=== PATIENT | female | born 1975 | race African-American/Black ===

== ENCOUNTER 2017-06-04 01:39 | Emergency (ER) | payer OTHER ==
[~2017-06-04] VITALS: Ht 167.6 cm; Wt 142.0 kg
[~2017-06-04 01:39] MED LIST: ACCUNEB SO1.25 MG/1 INH; ALPRAZOLAM; ALPRAZOLAM 0.50.5 M1; BIRTH CONTROL; CLEOCIN HCL150 MG PO; CYCLOBENZAPRINE5 MG PO; DOXYCYCLINE 10100 MG PO; FLEXERIL PO; HYDROCHLOROTH12.5 MG PO; IBUPROFEN 800800 M1 PO; IBUPROFEN 800800 MG PO; KEFLEX500 MG PO; LOESTRIN 24 FE1 EACH PO; MELOXICAM7.5 MG PO; NAPROSYN500 MG PO; NORCO 5-325 TA1 EACH PO; PREDNISONE 20 M20 MG PO; TESSALON PERLE100 MG PO; TUSSIONEX PENN115 ML PO; TUSSIONEX PENN473 ML PO; VENTOLIN HFA 1818 GM INH; XANAX 0.25 MG0.25 MG PO; XANAX 0.5 MG0.5 M1 PO; ZPAK PO
[2017-06-04 02:16] LABS: HEMATOCRIT 40.3 % (37.0-47.0); HEMOGLOBIN 13.2 gm/dL (12.0-15.0); MCHC 32.6 g/dL (28.0-37.0); MCV 79.8 fL (80.0-100.0); RBC 5.06 mil/uL (4.20-5.00); RDW 15.3 % (10.5-14.5); WBC 7.7 thou/uL (4.0-11.0)
[2017-06-04 02:26] LABS: CALCIUM 9.3 mg/dL (8.5-10.1); CREATININE 0.9 mg/dL (0.6-1.0); POTASSIUM 3.4 mmol/L (3.5-5.1)
[2017-06-04 04:08] LABS: URINE BLOOD NEGATIVE (Negative); URINE CLARITY SL CLOUDY; URINE COLOR YELLOW; URINE GLUCOSE-RANDOM* NEGATIVE (Negative); URINE KETONES 2+ (Negative); URINE LEUKOCYTES-REFLEX NEGATIVE (Negative); URINE NITRITE-REFLEX NEGATIVE (Negative); URINE PROTEIN (DIPSTICK) TRACE (Negative); URINE SPECIFIC GRAVITY >= 1.030 (1.005-1.035); URINE UROBILINOGEN 0.2 E.U./dl (0.2-1.0)
[2017-06-04 04:10] LABS: ICTOTEST (BILI CONFIRMATORY) Negative (Negative); URINE BILIRUBIN NEGATIVE (Negative)
[2017-06-04 04:51] VITALS: BP 136/78
[2017-12-06] MEDS ORDERED: NEURONTIN 300300 M1 PO (05:08)
[2017-12-06] MEDS ORDERED: ALEVE220 M1 PO (07:13)
[2017-12-07] MEDS ORDERED: FLEXERIL PO ×2 (00:16→07:27)
[2017-12-10] MEDS ORDERED: PRADAXA150 MG PO (13:16)
[2017-12-10] MEDS ORDERED: TYLENOL325 MG PO (13:16)
[2017-12-10] MEDS ORDERED: LEVAQUIN 750 M750 MG PO (13:35)
[2017-12-10] MEDS ORDERED: WORK EXCUSE (15:59)
== END 2017-06-04 04:52 | disposition home or self-care (01) ==
LOC: ER 01:39
PROVIDERS: Emergency Medicine
DX: O26.891 Other specified pregnancy related conditions, first trimester (principal); R10.2 Pelvic and perineal pain; O99.331 Smoking (tobacco) complicating pregnancy, first trimester; O99.341 Other mental disorders complicating pregnancy, first trimester; O16.1 Unspecified maternal hypertension, first trimester; Z3A.01 Less than 8 weeks gestation of pregnancy; Z88.0 Allergy status to penicillin

== ENCOUNTER 2018-06-15 12:28 | Emergency (ER) | payer OTHER ==
[~2018-06-15] VITALS: Ht 167.6 cm; Wt 138.8 kg
[~2018-06-15 12:28] MED LIST changes: +ALEVE220 M1 PO; +LEVAQUIN 750 M750 MG PO; +NEURONTIN 300300 M1 PO; +PRADAXA150 MG PO; +TYLENOL325 MG PO; +WORK EXCUSE
[2018-06-15 12:50] LABS: ABSOLUTE NEUTROPHILS 3.4 thou/uL (1.4-8.2); BASOPHILS 0.9 % (0.0-2.0); EOSINOPHILS 1.7 % (0.0-3.0); HEMATOCRIT 39.5 % (37.0-47.0); HEMOGLOBIN 13.1 gm/dL (12.0-15.0); LYMPHOCYTES 40.2 % (24.0-44.0); MCH 26.7 pg (26.0-34.0); MCHC 33.1 g/dL (28.0-37.0); MCV 80.7 fL (80.0-100.0); MONOCYTES 8.5 % (1.0-8.0); PLATELET COUNT 280 thou/uL (150-400); POLYS 48.7 % (36.0-66.0); RBC 4.89 mil/uL (4.20-5.00)
[2018-06-15 13:01] LABS: CALCIUM 8.7 mg/dL (8.5-10.1); CREATININE 0.8 mg/dL (0.6-1.0); POTASSIUM 4.3 mmol/L (3.5-5.1)
[2018-06-15 13:07] LABS: ALBUMIN 3.5 g/dL (3.4-5.0); TOTAL BILIRUBIN 0.4 mg/dL (<0.1-1.0); TOTAL PROTEIN 7.8 g/dL (6.4-8.2)
[2018-06-15] MEDS ORDERED: IBUPROFEN 400400 M2 PO (16:22)
[2018-06-15 16:30] VITALS: BP 114/72
--- NOTE | 2018-06-15 17:28 | EKG ---
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1975 Requested By: Luiz Heath Order Number: [id number] MD: Phil Lyn Measurements Intervals [place] [address] Rate: 97 P: 54 SD: 142 QRS: 3 QRSD: 85 T: 28 QT: 343 QTc: 436 Interpretive Statements Sinus rhythm Normal tracing Compared to ECG 12/29/2017 02:05:23 No significant changes Electronically Signed On 06-15-2018 17:27:57 CDT by Phil Lyn [email or web address] ��������������������������������������������� <ELECTRONICALLY SIGNED> ���������������������������������������� By: Phil Lyn MD, [facility] ��������������������������������������������� 06/15/18 1727 1239 1239 Phil Lyn MD, FACC /EPI
== END 2018-06-15 16:35 | disposition home or self-care (01) ==
LOC: ER 12:28
PROVIDERS: Physician Assistant
DX: R07.89 Other chest pain (principal); I10 Essential (primary) hypertension; F41.9 Anxiety disorder, unspecified; M79.7 Fibromyalgia; Z87.891 Personal history of nicotine dependence; Z88.0 Allergy status to penicillin; Z88.8 Allergy status to other drugs, medicaments and biological substances; Z98.890 Other specified postprocedural states; Z86.711 Personal history of pulmonary embolism

== ENCOUNTER 2019-04-03 07:14 | Emergency (ER) | payer OTHER ==
[~2019-04-03] VITALS: Ht 167.6 cm; Wt 145.2 kg
[~2019-04-03 07:14] MED LIST changes: +IBUPROFEN 400400 M2 PO
[2019-04-03 08:36] LABS: BASOPHILS 0.6 % (0.0-2.0); EOSINOPHILS 3.1 % (0.0-3.0); HEMATOCRIT 40.5 % (37.0-47.0); HEMOGLOBIN 13.1 gm/dL (12.0-15.0); LYMPHOCYTES 44.1 % (24.0-44.0); MCH 26.9 pg (26.0-34.0); MCHC 32.3 g/dL (28.0-37.0); MONOCYTES 6.5 % (1.0-8.0); PLATELET COUNT 298 thou/uL (150-400); POLYS 45.7 % (36.0-66.0); RBC 4.87 mil/uL (4.20-5.00); RDW 15.5 % (10.5-14.5); WBC 4.4 thou/uL (4.0-11.0)
[2019-04-03 08:43] LABS: CREATININE 0.8 mg/dL (0.6-1.0); POTASSIUM 4.2 mmol/L (3.5-5.1)
[2019-04-03] MEDS ORDERED: MOBIC15 MG PO (09:12)
[2019-04-03] MEDS ORDERED: NORCO 5-325 TA1 EAC1 PO (09:12)
[2019-04-03 09:22] VITALS: BP 132/78
== END 2019-04-03 09:23 | disposition home or self-care (01) ==
LOC: ER 07:14
PROVIDERS: Emergency Medicine
DX: S86.811A Strain of other muscle(s) and tendon(s) at lower leg level, right leg, initial encounter (principal); R07.89 Other chest pain; I10 Essential (primary) hypertension; M79.7 Fibromyalgia; F41.9 Anxiety disorder, unspecified; Z86.711 Personal history of pulmonary embolism; Z98.890 Other specified postprocedural states; Z88.0 Allergy status to penicillin; Z88.9 Allergy status to unspecified drugs, medicaments and biological substances; Z87.891 Personal history of nicotine dependence; W18.39XA Other fall on same level, initial encounter; Y92.89 Other specified places as the place of occurrence of the external cause; Y93.89 Activity, other specified; Y99.8 Other external cause status

== ENCOUNTER 2019-08-31 16:36 | Emergency (ER) | payer OTHER ==
[~2019-08-31] VITALS: Ht 167.6 cm; Wt 147.0 kg
[~2019-08-31 16:36] MED LIST changes: +MOBIC15 MG PO; +NORCO 5-325 TA1 EAC1 PO
[2019-08-31 17:33] LABS: ABSOLUTE NEUTROPHILS 2.6 thou/uL (1.4-8.2); BASOPHILS 0.4 % (0.0-2.0); EOSINOPHILS 1.6 % (0.0-3.0); HEMATOCRIT 42.3 % (37.0-47.0); LYMPHOCYTES 44.2 % (24.0-44.0); MCH 27.3 pg (26.0-34.0); MCV 82.8 fL (80.0-100.0); PLATELET COUNT 285 thou/uL (150-400); POLYS 45.8 % (36.0-66.0); RBC 5.11 mil/uL (4.20-5.00); RDW 15.4 % (10.5-14.5); WBC 5.6 thou/uL (4.0-11.0)
[2019-08-31 17:41] LABS: ANION GAP 12 mmol/L (7-16); BUN 14 mg/dL (7-18); CALCIUM 9.1 mg/dL (8.5-10.1); CHLORIDE 100 mmol/L (98-107); CO2 21 mmol/L (21-32); CREATININE 0.9 mg/dL (0.6-1.0); GLUCOSE 86 mg/dL (74-106); POTASSIUM 3.5 mmol/L (3.5-5.1); SODIUM 133 mmol/L (136-145)
[2019-08-31 17:50] LABS: MAGNESIUM 1.8 mg/dL (1.8-2.4); TROPONIN-I <0.06 ng/mL (<0.06)
[2019-08-31] MEDS ORDERED: FLEXERIL PO (17:57)
[2019-08-31 19:05] LABS: URINE BILIRUBIN NEGATIVE (Negative); URINE BLOOD TRACE (Negative); URINE CLARITY CLEAR; URINE COLOR YELLOW; URINE GLUCOSE-RANDOM* NEGATIVE (Negative); URINE KETONES 1+ (Negative); URINE LEUKOCYTES-REFLEX NEGATIVE (Negative); URINE NITRITE-REFLEX NEGATIVE (Negative); URINE PROTEIN (DIPSTICK) NEGATIVE (Negative); URINE UROBILINOGEN 0.2 E.U./dl (0.2-1.0)
[2019-08-31] MEDS ORDERED: VALIUM5 MG PO (19:24)
[2019-08-31] MEDS ORDERED: MEDROLDOSEPACK PO (19:24)
[2019-08-31 20:04] VITALS: BP 119/89
--- NOTE | 2019-09-01 08:53 | EKG ---
[facility] [place] [address] ELECTROCARDIOGRAM REPORT Name: JOHN STARKS Room #: [facility]P [facility]#: [id number] Admission: 08/31/19 Attend Phys: Discharge: 08/31/19 Date of : 79 Report #: [id number] THIS REPORT FOR: cc: Diamond Cervantes MD, Karla L. 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 : 1975 Requested By: Luis Edwards Order Number: [id number] MD: Phil Lyn Measurements Intervals [place] Rate: 106 P: 22 HI: 137 QRS: 15 QRSD: 82 T: 21 QT: 335 QTc: 445 Interpretive Statements Sinus tachycardia Poor R wave progression Compared to ECG 06/15/2018 12:39:20 No significant change was found Electronically Signed On 09-01-2019 8:51:46 CDT by Phil Lyn [email or web address] <ELECTRONICALLY SIGNED> By: Phil Lyn MD, FAC 09/01/19 0851 1643 1643 Phil Lyn MD, [facility] /EPI
== END 2019-08-31 20:05 | disposition home or self-care (01) ==
LOC: ER 16:36
PROVIDERS: Emergency Medicine
DX: M54.6 Pain in thoracic spine (principal); R07.89 Other chest pain; R00.0 Tachycardia, unspecified; R20.2 Paresthesia of skin; I10 Essential (primary) hypertension; M79.7 Fibromyalgia; Z87.891 Personal history of nicotine dependence; Z88.0 Allergy status to penicillin; Z88.8 Allergy status to other drugs, medicaments and biological substances; Z88.6 Allergy status to analgesic agent; Z79.899 Other long term (current) drug therapy; Z98.890 Other specified postprocedural states; Z86.711 Personal history of pulmonary embolism

== ENCOUNTER 2020-03-21 11:57 | Emergency (ER) | payer OTHER ==
[~2020-03-21] VITALS: Ht 167.6 cm; Wt 154.2 kg
[~2020-03-21 11:57] MED LIST changes: +MEDROLDOSEPACK PO; +VALIUM5 MG PO
[2020-03-21 12:09] VITALS: BP 150/91
[2020-03-21] MEDS ORDERED: CLOTRIMAZOLE 1%15 G1 TOP (13:10)
== END 2020-03-21 13:15 | disposition home or self-care (01) ==
LOC: ER 11:57
DX: B35.9 Dermatophytosis, unspecified (principal); L73.9 Follicular disorder, unspecified; I10 Essential (primary) hypertension; Z79.899 Other long term (current) drug therapy; Z87.891 Personal history of nicotine dependence; Z88.0 Allergy status to penicillin; Z88.8 Allergy status to other drugs, medicaments and biological substances

== ENCOUNTER 2020-05-08 12:37 | Observation (INO) | payer OTHER ==
[~2020-05-08] VITALS: Ht 167.6 cm; Wt 144.2 kg
[~2020-05-08 12:37] MED LIST changes: +CLOTRIMAZOLE 1%15 G1 TOP
[2020-05-08 12:44] VITALS: BP 154/112
[2020-05-08 14:09] LABS: ABSOLUTE NEUTROPHILS 5.7 thou/uL (1.4-8.2); BASOPHILS 0.8 % (0.0-2.0); EOSINOPHILS 0.6 % (0.0-3.0); HEMATOCRIT 41.6 % (37.0-47.0); HEMOGLOBIN 13.7 gm/dL (12.0-15.0); LYMPHOCYTES 27.7 % (24.0-44.0); MCH 26.8 pg (26.0-34.0); MCHC 32.9 g/dL (28.0-37.0); MCV 81.3 fL (80.0-100.0); PLATELET COUNT 349 thou/uL (150-400); POLYS 62.9 % (36.0-66.0); RBC 5.12 mil/uL (4.20-5.00); RDW 15.5 % (10.5-14.5)
[2020-05-08 14:21] LABS: ANION GAP 9 mmol/L (7-16); BUN 14 mg/dL (7-18); CALCIUM 9.5 mg/dL (8.5-10.1); CHLORIDE 99 mmol/L (98-107); CO2 30 mmol/L (21-32); CREATININE 1.2 mg/dL (0.6-1.0); GLUCOSE 82 mg/dL (74-106); POTASSIUM 3.4 mmol/L (3.5-5.1); SODIUM 138 mmol/L (136-145)
[2020-05-08 14:29] LABS: TROPONIN-I <0.06 ng/mL (<0.06)
--- NOTE | 2020-05-08 15:40 | EKG ---
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 : 1975 Requested By: Allison Ellis Order Number: [id number] MD: Malachi Feliz Measurements Intervals [place] Rate: 84 P: 48 [place]: 150 QRS: 7 QRSD: 90 T: 27 QT: 370 QTc: 438 Interpretive Statements Sinus rhythm LVH by voltage Compared to ECG 08/31/2019 16:43:04 Left ventricular hypertrophy now present Sinus tachycardia no longer present Poor R-wave progression no longer present Electronically Signed On 05-08-2020 15:40:23 WARPMAN by Malachi Feliz [email or web address] <ELECTRONICALLY SIGNED> By: Malachi Feliz MD 05/08/20 1540 1439 1439 Malachi Feliz MD /NANCY
[2020-05-08 16:18] VITALS: BP 154/112
[2020-05-08 17:04] VITALS: BP 138/100
[2020-05-08 17:30] VITALS: BP 147/98
[2020-05-08 17:45] VITALS: BP 147/98
--- NOTE | 2020-05-08 19:19 | NUR ---
PT CARE ASSUMED AT 0700. ASSESSMENTS CHARTED. MEDICATIONS CHARTED. HIWOT IV. SINUS RHYTHM. PT COMPLAINS OF MID BACK AND CHEST PAIN. TOILET. UP AD RAE. PT BELIEVES HER ISSUE TO BE PE, STATES THAT SHE HAS HAD IT BEFORE.
[2020-05-08 20:02] VITALS: BP 144/84
[2020-05-09 00:36] VITALS: BP 122/88
[2020-05-09 04:28] VITALS: BP 131/81
--- NOTE | 2020-05-09 05:01 | NUR ---
ASSUMED PATIENT CARE AT 1845. VITAL SIGNS STABLE. PATIENT HAD MANY COMPLAINTS OF PAIN AND NAUSEA OVER SHIFT WHICH WERE TREATED APPROPRIATELY THROUGH MEDICATIONS AND NON PHARMACOLOGICAL INTERVENTIONS. FULLY ALERT AND ORIENTED, PATIENT IS ABLE TO CALL APPROPRIATELY FOR NEEDS AND PARTICIPATE IN CARE. UP AD RAE THROUGHOUT, PATIENT APPEARS STRONG AND BALANCED WHEN AMBULATING. CONTINUE PLAN OF CARE.
[2020-05-09 06:35] LABS: CALCIUM 8.9 mg/dL (8.5-10.1); MAGNESIUM 2.1 mg/dL (1.8-2.4); POTASSIUM 3.7 mmol/L (3.5-5.1)
[2020-05-09 06:44] LABS: CHOLESTEROL 204 mg/dL (<200); HDL CHOLESTEROL 55 mg/dL (>40); LDL CHOLESTEROL 130 mg/dL (<100); TC:HDL 3.7 Ratio (Not establshd); TRIGLYCERIDE 96 mg/dL (<150); TROPONIN-I <0.06 ng/mL (<0.06); VLDL 19 mg/dL (<40)
--- NOTE | 2020-05-09 07:26 | EKG ---
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 : 1975 Requested By: Allison Ellis Order Number: [id number] : Philip Hinkle Measurements Intervals [place] Rate: 132 P: 51 PA: 136 QRS: 19 QRSD: 84 T: 57 QT: 304 QTc: 451 Interpretive Statements Sinus tachycardia Abnormal R-wave progression, late transition Baseline wander in lead(s) II,aVR Compared to ECG 08/31/2019 16:43:04 Poor R-wave progression no longer present Electronically Signed On 05-09-2020 7:26:02 BAIT TIER by Philip Hinkle [email or web address] <ELECTRONICALLY SIGNED> By: Philip Hinkle MD, [facility] 05/09/20 0726 1243 1243 Philip Hinkle MD, [facility] /EPI
[2020-05-09 08:00] VITALS: BP 120/58
[2020-05-09 09:26] LABS: BASOPHILS 0.5 % (0.0-2.0); EOSINOPHILS 1.2 % (0.0-3.0); HEMOGLOBIN 13.2 gm/dL (12.0-15.0); LYMPHOCYTES 35.4 % (24.0-44.0); MCH 26.6 pg (26.0-34.0); MCHC 32.1 g/dL (28.0-37.0); MCV 82.8 fL (80.0-100.0); MONOCYTES 10.1 % (1.0-8.0); PLATELET COUNT 331 thou/uL (150-400); POLYS 52.8 % (36.0-66.0); RBC 4.95 mil/uL (4.20-5.00); RDW 15.6 % (10.5-14.5); WBC 5.6 thou/uL (4.0-11.0)
--- NOTE | 2020-05-09 09:58 | 2DMMODE ---
[facility] [place] [address] 2 D/M-MODE ECHOCARDIOGRAM Name: JOHN STARKS Room #: 214-P ADM IN M.R.#: [id number] Admission: 05/08/20 Attend Phys: Austyn Patel MD Discharge: Date of : 79 Report #: [id number] THIS REPORT FOR: cc: Diamond Cervantes MD, Karla L. MD Lammoglia, Francisco J. MD ~ APPROVED REPORT Study performed: 05/09/2020 08:01:06 EXAM: Comprehensive 2D, Doppler, and color-flow Echocardiogram Patient Location: Bedside Room #: 214 Status: routine BSA: 2.41 HR: 73 bpm BP: 131/81 mmHg Other Information Study Quality: Adequate Technically limited study due to morbid obesity. Indications Chest Pain Hx: HTN, Pulmonary embolism, tobacco abuse. 2D Dimensions RVDd: 33.21 mm IVSd: 10.37 (7-11mm) LVOT Diam: 19.37 (18-24mm) LVDd: 54.07 mm PWd: 8.52 (7-11mm) Ascending Ao: 26.01 (22-36mm) LVDs: 31.93 (25-40mm) Aortic Root: 24.42 mm Volumes Left Atrial Volume (Systole) Single Plane 4CH: 39.49 mL Single Plane 2CH: 66.30 mL LA ESV Index: 23.00 mL/m2 Aortic Valve AoV Peak Zenon.: 1.63 m/s AO Peak Gr.: 10.61 mmHg LVOT Max P.20 mmHg LVOT Max V: 1.02 m/s MARYAM Vmax: 1.85 cm2 [facility] [address] [place] [address] 2 D/M-MODE ECHOCARDIOGRAM Name: JOHN STARKS Patria Room #: 214-P [facility]#: [id number] Admission: 05/08/20 Attend Phys: Austyn Patel MD Discharge: Date of : 79 Report #: [id number] Mitral Valve E/A Ratio: 1.2 MV Decel. Time: 235.54 ms MV E Max Zenon.: 0.85 m/s MV A Zenon.: 0.69 m/s MV PHT: 68.31 ms IVRT: 83.04 ms Pulmonary Valve PV Peak Zenon.: 1.03 m/s PV Peak Gr.: 4.24 mmHg Pulmonary Vein P Vein S: 0.51 m/s P Vein A: 0.36 m/s P Vein D: 0.30 m/s P Vein A Dur.: 141.9 msec P Vein S/D Ratio: 1.70 Tricuspid Valve TR Peak Zenno.: 2.31 m/s RAP Estimate: 5.00 mmHg TR Peak Gr.: 21.42 mmHg PA Pressure: 26.00 mmHg Left Ventricle The left ventricle is normal size. There is normal LV segmental wall motion. There is normal left ventricular wall thickness. Left ventricular systolic function is normal. LVEF is 55-60%. The left ventricular diastolic function is normal. Right Ventricle The right ventricle is normal size. The right ventricular systolic function is normal. Atria The left atrium size is normal. The right atrium size is normal. Aortic Valve The aortic valve is normal in structure. No aortic regurgitation is present. There is no aortic valvular stenosis. Mitral Valve The mitral valve is normal in structure. There is no mitral valve regurgitation noted. No evidence of mitral valve stenosis. Tricuspid Valve The tricuspid valve is normal in structure. Trace tricuspid [facility] [address] [place] [address] 2 D/M-MODE ECHOCARDIOGRAM Name: JOHN STARKS Room #: 214-P [facility] IN M.R.#: [id number] Admission: 05/08/20 Attend Phys: Austyn Patel MD Discharge: Date of : 79 Report #: [id number] regurgitation. Estimated PAP is 25mmHg. Pulmonic Valve Pulmonic valve is not well visualized. Trace pulmonic regurgitation. Great Vessels The aortic root is normal in size. The ascending aorta is normal in size. IVC is normal in size and collapses >50% with inspiration. Pericardium There is no pericardial effusion. <Conclusion> The left ventricle is normal size. LVEF is 55-60%. The aortic valve is normal in structure. The mitral valve is normal in structure. The tricuspid valve is normal in structure. Trace tricuspid regurgitation. Estimated PAP is 25mmHg. Pulmonic valve is not well visualized. Trace pulmonic regurgitation. There is no pericardial effusion. <ELECTRONICALLY SIGNED> By: Layo Meneses MD 05/09/20 0958 7 Layo Meneses MD /INF
[2020-05-09 11:45] VITALS: BP 106/64
[2020-05-09 15:28] VITALS: BP 106/64
--- NOTE | 2020-05-09 19:51 | NUR ---
ASSUMED CARE OF PT AT SHIFT CHANGE. ASSESSMENTS CHARTED. MEDS GIVEN PER JUN. PT A&OX4, C/O PAIN TREATED WITH IV AND PO MEDS WITH PARTIAL RELIEF. DISCHARGED ORDERS AND INSTRUCTIONS COMPLETE. IV AND TELE DC'D.
[2020-05-09 19:53] VITALS: BP 106/64
== END 2020-05-09 16:46 | disposition home or self-care (01) ==
LOC: ER 12:37 → EROBS 16:08 → 2N 16:08
PROVIDERS: Emergency Medicine; Nurse Practitioner; ADMIT Hospitalist; ATTEND Hospitalist
DX: R07.89 Other chest pain (principal); N17.9 Acute kidney failure, unspecified; I10 Essential (primary) hypertension; F41.9 Anxiety disorder, unspecified; M79.7 Fibromyalgia; F17.210 Nicotine dependence, cigarettes, uncomplicated; Z88.0 Allergy status to penicillin; Z88.1 Allergy status to other antibiotic agents; Z79.899 Other long term (current) drug therapy; Z98.890 Other specified postprocedural states; Z86.711 Personal history of pulmonary embolism
CPT/HCPCS: 10081

== ENCOUNTER 2020-05-17 12:10 | Emergency (ER) | payer OTHER ==
[~2020-05-17] VITALS: Ht 167.6 cm; Wt 163.3 kg
[2020-05-17 12:37] LABS: HEMATOCRIT 44.5 % (37.0-47.0); HEMOGLOBIN 14.4 gm/dL (12.0-15.0); MCH 26.5 pg (26.0-34.0); MCHC 32.5 g/dL (28.0-37.0); MCV 81.5 fL (80.0-100.0); RBC 5.45 mil/uL (4.20-5.00); RDW 15.7 % (10.5-14.5); WBC 6.2 thou/uL (4.0-11.0)
[2020-05-17 12:54] LABS: ANION GAP 10 mmol/L (7-16); BUN 17 mg/dL (7-18); CALCIUM 9.3 mg/dL (8.5-10.1); CHLORIDE 102 mmol/L (98-107); CO2 24 mmol/L (21-32); CREATININE 1.1 mg/dL (0.6-1.0); GLUCOSE 84 mg/dL (74-106); POTASSIUM 3.7 mmol/L (3.5-5.1); SODIUM 136 mmol/L (136-145)
[2020-05-17 12:59] LABS: ALBUMIN 3.6 g/dL (3.4-5.0); SGOT 16 U/L (15-37); SGPT 28 U/L (14-59); TOTAL BILIRUBIN 0.3 mg/dL (0.2-1.0); TROPONIN-I <0.06 ng/mL (<0.06)
[2020-05-17 14:27] VITALS: BP 133/77
--- NOTE | 2020-05-17 15:56 | EKG ---
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 : 1975 Requested By: Trevor Ames Order Number: [id number] MD: Philip Hinkle Measurements Intervals [place] Rate: 111 P: 23 LA: 142 QRS: 16 QRSD: 80 T: 21 QT: 316 QTc: 430 Interpretive Statements Sinus tachycardia Compared to ECG 05/08/2020 14:39:41 Sinus rhythm no longer present Left ventricular hypertrophy no longer present Electronically Signed On 05-17-2020 15:55:57 BACTERIOLOGY PROFESSOR by Philip Hinkle [email or web address] <ELECTRONICALLY SIGNED> By: Philip Hinkle MD, [facility] 05/17/20 1555 1215 1215 Phiilp Hinkle MD, FACC /EPI
== END 2020-05-17 14:27 | disposition home or self-care (01) ==
LOC: ER 12:10
PROVIDERS: Emergency Medicine
DX: R07.89 Other chest pain (principal); I10 Essential (primary) hypertension; M79.7 Fibromyalgia; F17.210 Nicotine dependence, cigarettes, uncomplicated; Z88.0 Allergy status to penicillin; Z88.8 Allergy status to other drugs, medicaments and biological substances; Z79.899 Other long term (current) drug therapy; Z86.711 Personal history of pulmonary embolism; Z98.890 Other specified postprocedural states

== ENCOUNTER → 2020-05-24 | Outpatient (CLI) | payer OTHER | LOC: RAD 14:25 | PROVIDERS: ATTEND Family Medicine | DX: R07.9 Chest pain, unspecified (principal); Z86.711 Personal history of pulmonary embolism ==

== ENCOUNTER → 2020-05-28 | Outpatient (CLI) | payer OTHER ==
[~2020-05-28] MED LIST changes: +METOPROLOL SUCC25 M1 PO
== END ==
LOC: SJCVCIMAG 14:34
PROVIDERS: ATTEND Family Medicine
DX: R07.89 Other chest pain (principal); M79.602 Pain in left arm; Z86.711 Personal history of pulmonary embolism

== ENCOUNTER → 2020-08-29 | Outpatient (CLI) | payer OTHER ==
[2020-08-29 14:34] LABS: ABSOLUTE NEUTROPHILS 3.1 thou/uL (1.4-8.2); BASOPHILS 0.9 % (0.0-2.0); HEMATOCRIT 40.6 % (37.0-47.0); LYMPHOCYTES 37.2 % (24.0-44.0); MCH 26.5 pg (26.0-34.0); MCHC 32.1 g/dL (28.0-37.0); MCV 82.4 fL (80.0-100.0); MONOCYTES 7.6 % (1.0-8.0); PLATELET COUNT 328 thou/uL (150-400); POLYS 52.3 % (36.0-66.0); RBC 4.93 mil/uL (4.20-5.00); RDW 15.6 % (10.5-14.5); WBC 5.9 thou/uL (4.0-11.0)
[2020-08-29 14:47] LABS: ALBUMIN 3.3 g/dL (3.4-5.0); CALCIUM 9.1 mg/dL (8.5-10.1); CREATININE 1.1 mg/dL (0.6-1.0); POTASSIUM 3.6 mmol/L (3.5-5.1); TOTAL BILIRUBIN 0.3 mg/dL (0.2-1.0); TOTAL PROTEIN 7.5 g/dL (6.4-8.2)
== END ==
LOC: LAB 13:26
PROVIDERS: ATTEND Family Medicine
DX: L40.0 Psoriasis vulgaris (principal); Z79.899 Other long term (current) drug therapy

== ENCOUNTER → 2020-09-20 | Outpatient (CLI) | payer OTHER | LOC: LAB 11:39 | PROVIDERS: ATTEND Family Medicine | DX: Z79.899 Other long term (current) drug therapy (principal) ==